=== PATIENT | male | born 1990 | race Caucasian/White ===

== ENCOUNTER 2018-07-28 16:28 | Inpatient (IN) | payer OTHER ==
[2018-07-28 17:43] VITALS: BMI 19.9
--- NOTE | 2018-07-28 19:37 | HP ---
CIWA Score Nausea/Vomitin-No Nausea/No Vomiting Muscle Tremors: 4-Moderate,w/Arms Extend Anxiety: 4-Mod. Anxious/Guarded Agitation: 4-Moderately Restless Paroxysmal Sweats: No Perspiration Orientation: 0-Oriented Tacttile Disturbances: 0-None Auditory Disturbances: 0-None Visual Disturbances: 0-None Headache: 0-None Present CIWA-Ar Total Score: 12 - Admission Criteria OASAS Guidelines: Admission for Medically Managed Detox: Requires at least one of the followin. CIWA greater than 12 2. Seizures within the past 24 hours 3. Delirium tremens within the past 24 hours 4. Hallucinations within the past 24 hours 5. Acute intervention needed for co occurring medical disorder 6. Acute intervention needed for co occurring psychiatric disorder 7. Severe withdrawal that cannot be handled at a lower level of care (continued vomiting, continued diarrhea, abnormal vital signs) requiring intravenous medication and/or fluids 8. Admission ROS S - HPI Allergies/Adverse Reactions: Allergies Allergy/AdvReac Type Severity Reaction Status Date / Time No Known Allergies Allergy Verified 07/28/18 19:29 History of Present Illness: pt here requesting detox from etoh use , reports 10-12 beers/day , reports since age 19 , progressively increased to daily x 4-5 years . This is the pt's first tx episode reports was feeling progressively worse and " I don't like the person I am becoming " , reports he starts drinking upon awakening , states he has tremors if not drinking, irritability, denies blackouts , denies seizures , denies falls while intoxicated , denies driving in the past 4-5 years, denies legal issues. Latest alcohol use 2 pm today , current symptoms as above, ZOILA 0.088 . tobacco : 1/2 ppd x since age 13 denies illicits currently , in the past cocaine ( 1 mo ago ) , LSD , DMT, heroin ( 3 years ago denies OD , denies IVDU ) , MDA, MDMA , PCP , barbiturates , mushrooms ,K2 , cannabis , oxycodone, Perocet, Valium, vicodin ,xanax ( 2 years ago ) . Reports cannabis since age 12 up to 2 days ago . PMHx : PUD age 15 w/ surgical intervention , urethral dilation age 14 Psych : depression . Denies current Si / HI . meds _ denies SHx : lives w/ parents or GF , employed at [employer] . Search Terms: bailey zamorano, 1990 Search Date: 07/28/2018 07:44:53 PM The Drug Utilization Report below displays all of the controlled substance prescriptions, if any, that your patient has filled in the last twelve months. The information displayed on this report is compiled from pharmacy submissions to the Department, and accurately reflects the information as submitted by the pharmacies. This report was requested by: Brandi Ramirez | Reference #: [id number] There are no results for the search terms that you entered Exam Limitations: No Limitations - Ebola screening Have you traveled outside of the country in the last 21 days: No (N) Have you had contact with anyone from an Ebola affected area: No Have you been sick,other than usual withdrawal symptoms: No Do you have a fever: No - Review of Systems Constitutional: See HPI, Loss of Appetite EENT: reports: No Symptoms Reported Respiratory: reports: No Symptoms reported Cardiac: reports: No Symptoms Reported GI: reports: No Symptoms Reported : reports: No Symptoms Reported Musculoskeletal: reports: No Symptoms Reported Integumentary: reports: No Symptoms Reported Neuro: reports: No Symptoms reported Endocrine: reports: No Symptoms Reported Psychiatric: reports: Orientated x3, Agitated, Anxious Patient History - Smoking Cessation Smoking history: Current every day smoker Have you smoked in the past 12 months: Yes Aproximately how many cigarettes per day: 10 Hx Chewing Tobacco Use: No Initiated information on smoking cessation: No Family Disease History - Family Disease History Family Disease History: Diabetes: Father Other Family History: no children Admission Physical Exam [facility] - Vital Signs Vital Signs: Vital Signs - 24 hr 07/28/18 17:42 Temperature 98.5 F Pulse Rate 102 H Respiratory 18 Rate Blood Pressure 130/86 - Physical General Appearance: Yes: Mild Distress, Anxious HEENTM: Yes: EOMI, Hearing grossly Normal, Normocephalic, Normal Voice Respiratory: Yes: Chest Non-Tender, Lungs Clear, Normal Breath Sounds Neck: Yes: No masses,lesions,Nodules, Trachea in good position Cardiology: Yes: Regular Rhythm, Regular Rate, S1, S2, Tachycardia Abdominal: Yes: Non Tender, Soft Back: Yes: Normal Inspection Musculoskeletal: Yes: full range of Motion, Gait Steady Extremities: Yes: Tremors, Erythema (richard hands) Neurological: Yes: Fully Oriented, Alert, Motor Strength 5/5, Normal Mood/Affect Integumentary: Yes: Normal Color, Dry - Diagnostic (1) Alcohol abuse Current Visit: Yes Status: Acute (2) Tobacco dependence Current Visit: Yes Status: Chronic [facility] Breath Alcohol Content Breath Alcohol Content: 0.088 Urine Drug Screen - Results Drug Screen Negative: Yes Inpatient Rehab Admission - Rehab Decision to Admit Inpatient rehab admission?: No
[2018-07-28] MEDS ORDERED: MAG HYDROX/AL HYDROX/SIMETH 30 ML UNIT-DOSE CUP PO PRN (19:53)
[2018-07-28] MEDS ORDERED: MAGNESIUM HYDROX 2400MG/30ML ORAL SUSPENSION 30 ML CUP PO PRN (19:53)
[2018-07-28] MEDS ORDERED: MENTHOL/PHENOL 1 EACH UD MM PRN (19:53)
[2018-07-28] MEDS ORDERED: chlordiazePOXIDE HCL 10 MG CAPSULE PO PRN (19:53)
[2018-07-28] MEDS ORDERED: BISMUTH SUBSALICYLATE 524 MG/30 ML UD PO PRN (19:53)
[2018-07-28] MEDS ORDERED: MAGNESIUM CITRATE 300 ML BOTTLE PO PRN (19:53)
[2018-07-28] MEDS ORDERED: hydrOXYzine PAMOATE 25 MG CAPSULE (FP) PO PRN (19:53)
[2018-07-28] MEDS ORDERED: ACETAMINOPHEN 325 MG TABLET (FP) PO PRN ×2 (19:53)
[2018-07-28] MEDS ORDERED: IBUPROFEN 400 MG TABLET (FP) PO PRN (19:53)
[2018-07-28] MEDS: THIAMINE HCL 100 MG TABLET (FP) PO SCH (22:02)
[2018-07-28] MEDS: chlordiazePOXIDE HCL 25 MG CAPSULE PO SCH (22:02)
[2018-07-28] MEDS: MELATONIN 5 MG TABLETS PO PRN (22:03)
[2018-07-29] MEDS: chlordiazePOXIDE HCL 25 MG CAPSULE PO SCH ×2 (06:06→13:34)
[2018-07-29] MEDS: PRENATAL VITAMINS W/ FOLIC ACID TABLET (FP) PO SCH (10:01)
[2018-07-29 11:24] LABS: HEMATOCRIT 41.6 % (35.4-49); HEMOGLOBIN 14.3 GM/dL (11.7-16.9); MCHC 34.3 g/dl (32.0-35.9); MEAN CELL VOLUME 93.4 fl (80-96); MEAN PLT VOLUME 8.5 fl (7.5-11.1); PLATELET COUNT 162 K/MM3 (134-434); RBC 4.45 M/mm3 (4.00-5.60); RDW 13.6 % (11.9-15.9); WHITE BLOOD COUNT 4.2 K/mm3 (4.0-10.0)
[2018-07-29 11:58] LABS: ALBUMIN 3.6 g/dl (3.4-5.0); ALK PHOS 80 U/L (45-117); ANION GAP 11 MMOL/L (8-16); BILIRUBIN,TOTAL 0.8 mg/dL (0.2-1); BLOOD UREA NITROGEN 8 mg/dL (7-18); CALCIUM 8.4 mg/dL (8.5-10.1); CHLORIDE 102 mmol/L (98-107); CO2 24 mmol/L (21-32); CREATININE 0.9 mg/dL (0.55-1.3); GLUCOSE,RANDOM 221 mg/dL (74-106); POTASSIUM 3.4 mmol/L (3.5-5.1); SGOT/AST 76 U/L (15-37); SGPT/ALT 71 U/L (13-61); SODIUM 137 mmol/L (136-145); TOT PROT 6.6 g/dl (6.4-8.2)
[2018-07-29] MEDS ORDERED: POTASSIUM CHLORIDE ORAL LIQUID 20 MEQ/15 ML PO ONE (12:02)
--- NOTE | 2018-07-29 12:02 | PN ---
[facility] CIWA - CIWA Score Nausea/Vomitin-Mild Nausea/No Vomiting Muscle Tremors: 1-None Visible, but Wilder Anxiety: 1-Mildly Anxious Agitation: 1-Slight > Activity Paroxysmal Sweats: 1-Minimal Palms Moist Orientation: 0-Oriented Tacttile Disturbances: 0-None Auditory Disturbances: 0-None Visual Disturbances: 0-None Headache: 1-Very Mild CIWA-Ar Total Score: 6 [facility] Progress Note (SOAP) Subjective: says overall doing well with alcohol detox O: Vital Signs - 24 hr 07/28/18 07/28/18 07/29/18 17:42 21:54 00:30 Temperature 98.5 F 97.2 F L Pulse Rate 102 H 97 H Respiratory 18 18 18 Rate Blood Pressure 130/86 151/89 07/29/18 07/29/18 06:37 09:49 Temperature 97.8 F 96.9 F L Pulse Rate 72 64 Respiratory 18 18 Rate Blood Pressure 132/80 132/81 Laboratory Tests 07/29/18 07/29/18 07/29/18 07:00 07:00 07:00 WBC 4.2 RBC 4.45 Hgb 14.3 Hct 41.6 MCV 93.4 MCH 32.0 MCHC 34.3 RDW 13.6 Plt Count 162 MPV 8.5 Sodium 137 Potassium 3.4 L Chloride 102 Carbon Dioxide 24 Anion Gap 11 BUN 8 Creatinine 0.9 Creat Clearance w eGFR 99.08 Random Glucose 221 H Calcium 8.4 L Total Bilirubin 0.8 AST 76 H ALT 71 H Alkaline Phosphatase 80 Total Protein 6.6 Albumin 3.6 RPR Titer Nonreactive mildly increased liver enzymes decreased K- replete and recheck increased glucose- BGM in am a/p: continue alcohol detox protocol pt doing well
[2018-07-29] MEDS: NICOTINE POLACRILEX 2 MG GUM BUC PRN ×3 (14:03→20:06)
[2018-07-29] MEDS: chlordiazePOXIDE 5 MG CAPSULE PO SCH (21:11)
[2018-07-29] MEDS: THIAMINE HCL 100 MG TABLET (FP) PO SCH (22:11)
[2018-07-29] MEDS: MELATONIN 5 MG TABLETS PO PRN (22:12)
[2018-07-30] MEDS: chlordiazePOXIDE 5 MG CAPSULE PO SCH ×2 (05:50→14:39)
--- NOTE | 2018-07-30 09:59 | PN ---
[facility] CIWA - CIWA Score Nausea/Vomitin-No Nausea/No Vomiting Muscle Tremors: 2 Anxiety: 2 Agitation: 0-Normal Activity Paroxysmal Sweats: 2 Orientation: 0-Oriented Tacttile Disturbances: 1-Very Mild Itch/Numbness Auditory Disturbances: 0-None Visual Disturbances: 0-None Headache: 0-None Present CIWA-Ar Total Score: 7 S Progress Note (SOAP) Subjective: pruritus, chills and sweats Objective: 07/30/18 09:57 Vital Signs Temperature 97.2 F L 07/30/18 09:48 Pulse Rate 64 07/30/18 09:48 Respiratory Rate 16 07/30/18 09:48 Blood Pressure 117/68 07/30/18 09:48 O2 Sat by Pulse Oximetry (%) Laboratory Last Values WBC 4.2 K/mm3 (4.0-10.0) 07/29/18 07:00 RBC 4.45 M/mm3 (4.00-5.60) 07/29/18 07:00 Hgb 14.3 GM/dL (11.7-16.9) 07/29/18 07:00 Hct 41.6 % (35.4-49) 07/29/18 07:00 MCV 93.4 fl (80-96) 07/29/18 07:00 MCH 32.0 pg (25.7-33.7) 07/29/18 07:00 MCHC 34.3 g/dl (32.0-35.9) 07/29/18 07:00 RDW 13.6 % (11.9-15.9) 07/29/18 07:00 Plt Count 162 K/MM3 (134-434) 07/29/18 07:00 MPV 8.5 fl (7.5-11.1) 07/29/18 07:00 Sodium 137 mmol/L (136-145) 07/29/18 07:00 Potassium 3.4 mmol/L (3.5-5.1) L 07/29/18 07:00 Chloride 102 mmol/L (98-107) 07/29/18 07:00 Carbon Dioxide 24 mmol/L (21-32) 07/29/18 07:00 Anion Gap 11 MMOL/L (8-16) 07/29/18 07:00 BUN 8 mg/dL (7-18) 07/29/18 07:00 Creatinine 0.9 mg/dL (0.55-1.3) 07/29/18 07:00 Creat Clearance w eGFR 99.08 (>60) 07/29/18 07:00 POC Glucometer 89 UNITS (80-120) 07/30/18 05:49 Random Glucose 221 mg/dL (74-106) H 07/29/18 07:00 Calcium 8.4 mg/dL (8.5-10.1) L 07/29/18 07:00 Total Bilirubin 0.8 mg/dL (0.2-1) 07/29/18 07:00 AST 76 U/L (15-37) H 07/29/18 07:00 ALT 71 U/L (13-61) H 07/29/18 07:00 Alkaline Phosphatase 80 U/L (45-117) 07/29/18 07:00 Total Protein 6.6 g/dl (6.4-8.2) 07/29/18 07:00 Albumin 3.6 g/dl (3.4-5.0) 07/29/18 07:00 RPR Titer Nonreactive (NONREACTIVE) 07/29/18 07:00 repeat labs pending Assessment: 07/30/18 09:58 withdrawal sx Plan: increase po fluids continue detox continue to monitor
[2018-07-30] MEDS ORDERED: POTASSIUM CHLORIDE TABS 20 MEQ TABLET.ER (FP) PO SCH (10:00)
[2018-07-30] MEDS: NICOTINE POLACRILEX 2 MG GUM BUC PRN ×3 (10:45→19:35)
[2018-07-30] MEDS: PRENATAL VITAMINS W/ FOLIC ACID TABLET (FP) PO SCH (10:45)
[2018-07-30 10:51] LABS: ANION GAP 9 MMOL/L (8-16); BLOOD UREA NITROGEN 5 mg/dL (7-18); CALCIUM 8.5 mg/dL (8.5-10.1); CHLORIDE 104 mmol/L (98-107); CO2 26 mmol/L (21-32); CREATININE 0.8 mg/dL (0.55-1.3); GLUCOSE,RANDOM 136 mg/dL (74-106); POTASSIUM 3.4 mmol/L (3.5-5.1); SODIUM 139 mmol/L (136-145)
--- NOTE | 2018-07-30 11:52 | PN ---
[facility] Progress Note Note: Vital Signs Temperature 97.2 F L 07/30/18 09:48 Pulse Rate 64 07/30/18 09:48 Respiratory Rate 16 07/30/18 09:48 Blood Pressure 117/68 07/30/18 09:48 O2 Sat by Pulse Oximetry (%) Laboratory Last Values WBC 4.2 K/mm3 (4.0-10.0) 07/29/18 07:00 RBC 4.45 M/mm3 (4.00-5.60) 07/29/18 07:00 Hgb 14.3 GM/dL (11.7-16.9) 07/29/18 07:00 Hct 41.6 % (35.4-49) 07/29/18 07:00 MCV 93.4 fl (80-96) 07/29/18 07:00 MCH 32.0 pg (25.7-33.7) 07/29/18 07:00 MCHC 34.3 g/dl (32.0-35.9) 07/29/18 07:00 RDW 13.6 % (11.9-15.9) 07/29/18 07:00 Plt Count 162 K/MM3 (134-434) 07/29/18 07:00 MPV 8.5 fl (7.5-11.1) 07/29/18 07:00 Sodium 139 mmol/L (136-145) 07/30/18 07:30 Potassium 3.4 mmol/L (3.5-5.1) L 07/30/18 07:30 Chloride 104 mmol/L (98-107) 07/30/18 07:30 Carbon Dioxide 26 mmol/L (21-32) 07/30/18 07:30 Anion Gap 9 MMOL/L (8-16) 07/30/18 07:30 BUN 5 mg/dL (7-18) L 07/30/18 07:30 Creatinine 0.8 mg/dL (0.55-1.3) 07/30/18 07:30 Creat Clearance w eGFR 113.50 (>60) 07/30/18 07:30 POC Glucometer 89 UNITS (80-120) 07/30/18 05:49 Random Glucose 136 mg/dL (74-106) H 07/30/18 07:30 Calcium 8.5 mg/dL (8.5-10.1) 07/30/18 07:30 Total Bilirubin 0.8 mg/dL (0.2-1) 07/29/18 07:00 AST 76 U/L (15-37) H 07/29/18 07:00 ALT 71 U/L (13-61) H 07/29/18 07:00 Alkaline Phosphatase 80 U/L (45-117) 07/29/18 07:00 Total Protein 6.6 g/dl (6.4-8.2) 07/29/18 07:00 Albumin 3.6 g/dl (3.4-5.0) 07/29/18 07:00 RPR Titer Nonreactive (NONREACTIVE) 07/29/18 07:00 continue K+ supplement, repeat K+ in AM continue to monitor
[2018-07-30] MEDS ORDERED: chlordiazePOXIDE HCL 10 MG CAPSULE PO PRN (21:00)
[2018-07-30] MEDS: chlordiazePOXIDE HCL 10 MG CAPSULE PO SCH (22:00)
[2018-07-30] MEDS: MELATONIN 5 MG TABLETS PO PRN (22:37)
[2018-07-30] MEDS: THIAMINE HCL 100 MG TABLET (FP) PO SCH (22:37)
[2018-07-31] MEDS: chlordiazePOXIDE HCL 10 MG CAPSULE PO SCH (05:33)
[2018-07-31 06:35] VITALS: BP 132/92; PULSE 63; TEMP 96.9
--- NOTE | 2018-07-31 08:32 | DS ---
[facility] Detox Discharge Summary Admission Date: 07/28/18 Discharge Date: 07/31/18 - History Present History: Alcohol Dependence Additional Comments: 28 years old male admitted on 07/28/18 for alcohol withdrawal stabilization completed detox regimen aftercare [facility] Pertinent Past History: bring in lab report to follow up appointment discharged with K+ supplement - Physical Exam Results Vital Signs: Vital Signs Temperature 96.9 F L 07/31/18 06:34 Pulse Rate 63 07/31/18 06:34 Respiratory Rate 18 07/31/18 06:34 Blood Pressure 132/92 07/31/18 06:34 O2 Sat by Pulse Oximetry (%) Pertinent Admission Physical Exam Findings: alcohol withdrawal sx Laboratory Last Values WBC 4.2 K/mm3 (4.0-10.0) 07/29/18 07:00 RBC 4.45 M/mm3 (4.00-5.60) 07/29/18 07:00 Hgb 14.3 GM/dL (11.7-16.9) 07/29/18 07:00 Hct 41.6 % (35.4-49) 07/29/18 07:00 MCV 93.4 fl (80-96) 07/29/18 07:00 MCH 32.0 pg (25.7-33.7) 07/29/18 07:00 MCHC 34.3 g/dl (32.0-35.9) 07/29/18 07:00 RDW 13.6 % (11.9-15.9) 07/29/18 07:00 Plt Count 162 K/MM3 (134-434) 07/29/18 07:00 MPV 8.5 fl (7.5-11.1) 07/29/18 07:00 Sodium 139 mmol/L (136-145) 07/30/18 07:30 Potassium 3.4 mmol/L (3.5-5.1) L 07/30/18 07:30 Chloride 104 mmol/L (98-107) 07/30/18 07:30 Carbon Dioxide 26 mmol/L (21-32) 07/30/18 07:30 Anion Gap 9 MMOL/L (8-16) 07/30/18 07:30 BUN 5 mg/dL (7-18) L 07/30/18 07:30 Creatinine 0.8 mg/dL (0.55-1.3) 07/30/18 07:30 Creat Clearance w eGFR 113.50 (>60) 07/30/18 07:30 POC Glucometer 104 UNITS (80-120) 07/31/18 05:40 Random Glucose 136 mg/dL (74-106) H 07/30/18 07:30 Calcium 8.5 mg/dL (8.5-10.1) 07/30/18 07:30 Total Bilirubin 0.8 mg/dL (0.2-1) 07/29/18 07:00 AST 76 U/L (15-37) H 07/29/18 07:00 ALT 71 U/L (13-61) H 07/29/18 07:00 Alkaline Phosphatase 80 U/L (45-117) 07/29/18 07:00 Total Protein 6.6 g/dl (6.4-8.2) 07/29/18 07:00 Albumin 3.6 g/dl (3.4-5.0) 07/29/18 07:00 RPR Titer Nonreactive (NONREACTIVE) 07/29/18 07:00 lab noted continue K+ supplement with prescription - Treatment Hospital Course: Detox Protocol Followed, Detoxed Safely, Responded well, Discharged Condition Good, Rehab Referral Accepted Patient has Accepted a Rehab Referral to: [facility] - Medication Discharge Medications: Ambulatory Orders Potassium Chloride [K-Dur -] 20 meq PO DAILY #7 tablet.er 07/31/18 - Diagnosis (1) Alcohol abuse Status: Acute (2) Tobacco dependence Status: Acute (3) Hypopotassemia Status: Acute - AMA Did Patient Leave Against Medical Advice: No
== END 2018-07-31 09:17 | disposition home or self-care (01) | DRG 897 ==
LOC: YASAS 16:28 → Y3N 21:33
PROVIDERS: ADMIT Surgery; ATTEND Surgery
PROC: HZ2ZZZZ Detoxification Services for Substance Abuse Treatment (ICD-10-PCS; principal; 2018-07-28)
DX: F10.230 Alcohol dependence with withdrawal, uncomplicated (principal); F17.213 Nicotine dependence, cigarettes, with withdrawal; E87.6 Hypokalemia
CPT/HCPCS: 36415; 80048; 80053; 82962; 85027; 86593